=== PATIENT | male | born 1940 | race Caucasian/White ===

== ENCOUNTER → 2016-06-19 | Outpatient (CLI) | payer BC ==
[~2016-06-19] MED LIST: ASCO10003 PO; ASPI81TA28 PO; ATOR10TA88 PO; CALC-51 PO; LISI10TA PO; MULT-506 PO; PRLSR20 PO; RANI300C PO
== END | disposition home or self-care (01) ==
LOC: C.RDSM 13:15
PROVIDERS: ATTEND Physical Medicine & Rehabilitation Sports Medicine
DX: M25.561 Pain in right knee (principal); M25.562 Pain in left knee

== ENCOUNTER → 2016-12-05 | Outpatient (CLI) | payer BC ==
[~2016-12-05] MED LIST changes: +OPTIRAY 320 IV PRN
--- NOTE | 2016-12-05 11:03 | DIAGNOSTIC IMAGING REPORT ---
CT OF THE CHEST WITH IV CONTRAST CLINICAL HISTORY: LUNG NODULE COMPARISON STUDY: Chest x-ray dated 08/13/2015 TECHNIQUE: Following the IV administration of 93 mL of Optiray-320, CT of the thorax was performed from the thoracic inlet to the lung bases. Images are reviewed in the axial, sagittal, and coronal planes. IV contrast was administered without complication. A dose lowering technique was utilized adhering to the principles of ALARA. CT DOSE: 396.79 mGy.cm FINDINGS: Thyroid: Imaged portions of the thyroid gland are normal in appearance. Thoracic aorta: The thoracic aorta is normal in course and caliber, noting standard 3-vessel arch anatomy. No aneurysm or dissection is seen. Pulmonary vasculature: The pulmonary trunk is normal in caliber. There are no central filling defects identified to suggest pulmonary embolus. Note that this examination was not protocoled for the evaluation of pulmonary emboli. HEART: There are postsurgical changes of midline sternotomy. There are extensive coronary artery calcifications present. Lungs and pleural spaces: No pleural effusions are visualized. There is no focal pulmonary consolidation. There is a very low suspicion 6 x 3 mm left lower lobe perifissural nodule as visualized in image #[id number]/337. There is an area of presumed focal atelectasis within the right upper lobe as visualized in image #[id number]/337. Mediastinum: There is no evidence of pathologic mediastinal lymphadenopathy AP window lymph nodes are the upper limits of normal in size. Nia: There is no pathologic hilar adenopathy Axilla: There is no evidence of pathologic axillary lymphadenopathy Upper abdomen: Partially visualized upper abdominal viscera is within normal limits. Skeletal structures: There are no lytic or blastic osseous lesions. IMPRESSION: 1. No evidence of pathologic adenopathy 2. 9 mm right paramediastinal right upper lobe airspace opacity, likely representing focal atelectasis 3. Very low suspicion 6 x 3 mm left lower lobe perifissural nodule Electronically signed by: Mike Spencer M.D. 12/05/2016 11:01 AM Dictated Date/Time: 12/05/2016 10:55 AM
== END | disposition home or self-care (01) ==
LOC: C.CTS 10:21
PROVIDERS: ATTEND Family Medicine
DX: R91.1 Solitary pulmonary nodule (principal); R91.8 Other nonspecific abnormal finding of lung field

== ENCOUNTER → 2017-06-18 | Outpatient (CLI) | payer BC ==
[~2017-06-18] MED LIST changes: +ATOR10TA82 PO; -ATOR10TA88 PO; +CLOP1TAB15 PO; +DVN80 PO; -OPTIRAY 320 IV PRN; +TPRSR/25 PO
== END | disposition home or self-care (01) ==
LOC: C.RDSM 12:45
PROVIDERS: ATTEND Physical Medicine & Rehabilitation Sports Medicine
DX: Z96.653 Presence of artificial knee joint, bilateral (principal)

== ENCOUNTER → 2017-07-16 | Outpatient (CLI) | payer BC ==
[~2017-07-16] MED LIST changes: +OPTIRAY 320 IV PRN
--- NOTE | 2017-07-16 09:56 | DIAGNOSTIC IMAGING REPORT ---
CT SCAN OF THE CHEST WITH IV CONTRAST CLINICAL HISTORY: Follow-up pulmonary nodule. COMPARISON STUDY: Chest CT dated 12/05/2016. TECHNIQUE: Following the IV administration of 93 cc of Optiray 320, CT scan of the thorax was performed from the thoracic inlet to the upper abdomen. Images are reviewed in the axial, sagittal, and coronal planes. IV contrast was administered without complication. A dose lowering technique was utilized adhering to the principles of ALARA. The examination is degraded by streak artifact from a left shoulder arthroplasty. CT DOSE: 355.37 mGy.cm FINDINGS: Thyroid: Imaged portions of the thyroid gland are normal in size and attenuation. Thoracic aorta: The thoracic aorta is normal in caliber and demonstrates bovine variant arch anatomy. No dissection is seen. Pulmonary vasculature: The pulmonary trunk is normal in caliber. There are no filling defects identified in the central pulmonary vessels to indicate pulmonary embolus. Note that this examination was not protocoled for evaluation of the pulmonary arteries. Heart: The patient is status post midline sternotomy. The heart is enlarged and without pericardial effusion. Coronary arteries are densely calcified. Lungs and pleural spaces: There is no airspace consolidation or pleural effusion. The trachea and central airways are clear. The anterior paramediastinal right upper lobe density has modestly decreased in size from 12/05/2016, currently measuring up to 7.5 mm. This likely represents scar/atelectasis. A 2.2 cm irregular opacity is again seen at the left lung base on image #260. This also likely represents scar/atelectasis. A 6 mm pleural-based nodule in the left lower lobe is again seen along the major fissure on image #171. Mediastinum: There is no mediastinal lymphadenopathy. Nia: Clear. Axillae: There is no axillary lymphadenopathy. Upper abdomen: Call stat clips are noted. There is a small hiatal hernia. Skeletal structures: The skeletal structures are osteopenic. No lytic or blastic bony lesions are seen. A left shoulder arthroplasty is in place. IMPRESSION: 1. No airspace consolidation or pleural effusion is identified. 2. The right anterior paramediastinal right upper lobe density has modestly decreased in size from 12/05/2016 and likely represents atelectasis/scar. 3. A 2.2 cm density at the left lung base is also unchanged and likely represents atelectasis/scar. An additional 6 month follow-up examination is recommended for reassessment. 4. A 6 mm low suspicion pleural-based nodule in the left lower lobe is unchanged. No new pulmonary nodule is identified. 5. Cardiomegaly. Electronically signed by: Luis Shaikh M.D. 07/16/2017 9:54 AM Dictated Date/Time: 07/16/2017 9:44 AM
== END | disposition home or self-care (01) ==
LOC: C.CTS 09:11
PROVIDERS: ATTEND Family Medicine
DX: R91.1 Solitary pulmonary nodule (principal)